=== PATIENT | male | born 1945 | race Caucasian/White ===

== ENCOUNTER 2023-10-25 14:38 | Inpatient (IN) ==
[2023-10-25 15:39] LABS: ABS Basophils 0.1 10^3/uL (0.0-0.1); ABS Lymphocytes 0.5 10^3/uL (1.0-4.8); ABS Monocytes 0.6 10^3/uL (0.0-1.1); ABS Neutrophils 16.9 10^3/uL (1.5-7.6); ABS Nucleated RBC 0.01 10^3/ul; Hematocrit 37.6 % (38-53); Hemoglobin 12.7 g/dL (13.2-16.3); Mean Corpuscular Hemoglobin 30.5 pg (27-33); Mean Corpuscular Hgb Conc 33.9 g/dL (31-36); Mean Corpuscular Volume 90.1 fL (80-97); Mean Platelet Volume 7.5 fL (7.5-11.2); Platelet Count 179 10^3/uL (150-450); Red Blood Count 4.17 10^6/uL (4.06-5.63); Red Cell Distribution Width 15.3 % (12-17); White Blood Count 18.1 10^3/uL (3.6-10.2)
[2023-10-25 16:02] LABS: High Sens Troponin Baseline 19 pg/mL (<20)
[2023-10-25 16:10] LABS: ALT 9 U/L (7-52); Albumin 2.8 g/dL (3.2-5.2); Alkaline Phosphatase 56 U/L (35-149); Blood Urea Nitrogen 32 mg/dL (6-24); CO2 Carbon Dioxide 21 mmol/L (22-32); Calcium 7.6 mg/dL (8.6-10.3); Chloride 99 mmol/L (101-111); Globulin 2.9 g/dL (2-4); Glucose 101 mg/dL (70-100); Sodium 133 mmol/L (135-145); Total Bilirubin 0.6 mg/dL (0.2-1.0); Total Protein 5.7 g/dL (6.4-8.9); eGFR CKD-EPI 62.7 (>60)
[2023-10-25] MEDS: LACTATED RINGERS IV ONE (16:15)
[2023-10-25 16:25] LABS: Anion Gap 13 mmol/L (2-16)
[2023-10-25 17:05] LABS: High Sensitivity Troponin 1 Hr 16 pg/mL (<20)
[2023-10-25] MEDS: Orphenadrine Citrate INJ 30 mg/ml 2 ml VIAL (60 mg) IV ONE (17:09)
[2023-10-25 18:32] LABS: Urine Appearance Extra Turbid; Urine Bacteria 3+ /HPF (Absent); Urine Bilirubin Negative (Negative); Urine Blood 2+ (Negative); Urine Glucose Negative (Negative); Urine Ketones Negative (Negative); Urine Nitrite Negative (Negative); Urine Protein 2+ (>=100 mg/dL) (Negative); Urine Red Blood Cell 3+(>10/hpf) /HPF (0-Trace); Urine Specific Gravity 1.016 (1.002-1.030); Urine Urobilinogen Negative (Negative); Urine White Blood Cell 3+(>20/hpf) /HPF (0-Trace)
[2023-10-25 18:38] LABS: Urine Color Dark-Yellow
[2023-10-25] MEDS: Iodixanol (CONTRAST) 320 MG/ML 100 ML SDV IV ONE (18:43)
[2023-10-25] MEDS: cefTRIAXone 1 gm/50 mL D5W 1 GM/50 ML BAG IV ONE (20:00)
[2023-10-25] MEDS ORDERED: Polyethylene Glycol 3350 17 GM PACKET PO PRN (20:39)
[2023-10-25] MEDS: Remdesivir 100 mg Vial 200 MG in NS 0.9% 250 ml 210 ML IV ONE (21:55)
[2023-10-25] MEDS: Enoxaparin 40 MG/0.4 ML SYR SUBCUT SCH (21:55)
[2023-10-25] MEDS: Azithromycin 500 mg/250 ml NS 500 MG/250 ML BAG IVPB SCH (21:56)
[2023-10-25] MEDS ORDERED: Dextrose 50% Syringe 50 ml 25 GM/50 ML SYRINGE IV PUSH PRN (22:07)
[2023-10-25 22:32] LABS: INR 1.18 (0.85-1.14)
[2023-10-25 22:47] LABS: Albumin 2.6 g/dL (3.2-5.2); Calcium 7.6 mg/dL (8.6-10.3); Creatinine, Serum 1.04 mg/dL (0.67-1.17); Globulin 2.7 g/dL (2-4); Potassium 4.1 mmol/L (3.5-5.0); Total Bilirubin 0.4 mg/dL (0.2-1.0); Total Protein 5.3 g/dL (6.4-8.9); eGFR CKD-EPI 74.4 (>60)
[2023-10-25] MEDS: DOXYcycline 100 MG in NS 0.9% 250 ml 250 ML IVPB SCH (23:20)
[2023-10-26 06:44] LABS: ABS Lymphocytes 0.4 10^3/uL (1.0-4.8); ABS Monocytes 0.3 10^3/uL (0.0-1.1); ABS Neutrophils 12.5 10^3/uL (1.5-7.6); Hematocrit 37.5 % (38-53); Hemoglobin 12.8 g/dL (13.2-16.3); Lymphocyte % 3.1 %; Mean Corpuscular Hgb Conc 34.2 g/dL (31-36); Mean Corpuscular Volume 90.8 fL (80-97); Platelet Count 139 10^3/uL (150-450); Red Blood Count 4.13 10^6/uL (4.06-5.63); Red Cell Distribution Width 15.1 % (12-17); White Blood Count 13.2 10^3/uL (3.6-10.2)
[2023-10-26 06:48] LABS: INR 1.07 (0.85-1.14)
[2023-10-26 07:34] LABS: Albumin 2.6 g/dL (3.2-5.2); Albumin/Globulin Ratio 0.9 (1-3); Calcium 7.4 mg/dL (8.6-10.3); Creatinine, Serum 0.96 mg/dL (0.67-1.17); Globulin 2.9 g/dL (2-4); Potassium 4.4 mmol/L (3.5-5.0); Total Bilirubin 0.3 mg/dL (0.2-1.0); Total Protein 5.5 g/dL (6.4-8.9); eGFR CKD-EPI 81.9 (>60)
[2023-10-26] MEDS ORDERED: Polyethylene Glycol 3350 BTL 238 GM BTL PO PRN (14:50)
[2023-10-26] MEDS: cefTRIAXone 1 gm/50 mL D5W 1 GM/50 ML BAG IV SCH (20:05)
[2023-10-26] MEDS: oxyCODONE SR 10 mg TAB PO SCH (22:37)
[2023-10-26] MEDS: TROSPIUM 20 MG PO SCH (22:42)
[2023-10-27] MEDS: Remdesivir 100 mg Vial 100 MG in NS 0.9% 250 ml 230 ML IV SCH (00:30)
[2023-10-27] MEDS: Al Hydrox/Mg Hydrox/Simet LIQ 30 ML UDC PO PRN (01:38)
[2023-10-27] MEDS: DOXYcycline 100 MG in NS 0.9% 250 ml 250 ML IVPB SCH (01:38)
[2023-10-27 07:11] LABS: ALT 9 U/L (7-52); Albumin 2.6 g/dL (3.2-5.2); Albumin/Globulin Ratio 0.9 (1-3); Alkaline Phosphatase 52 U/L (35-149); Anion Gap 8 mmol/L (2-16); Blood Urea Nitrogen 39 mg/dL (6-24); CO2 Carbon Dioxide 26 mmol/L (22-32); Calcium 8.1 mg/dL (8.6-10.3); Chloride 99 mmol/L (101-111); Creatinine, Serum 0.93 mg/dL (0.67-1.17); Globulin 2.9 g/dL (2-4); Glucose 125 mg/dL (70-100); Sodium 133 mmol/L (135-145); Total Bilirubin 0.2 mg/dL (0.2-1.0); Total Protein 5.5 g/dL (6.4-8.9); eGFR CKD-EPI 85.1 (>60)
[2023-10-27 10:27] LABS: Potassium Redraw 4.3 mmol/L (3.5-5.0)
[2023-10-27] MEDS: Aspirin EC 81 mg TAB.EC (enteric coated) PO SCH (11:40)
[2023-10-27] MEDS: Lidocaine PATCH 5% PATCH TRANSDERM SCH (11:42)
[2023-10-27] MEDS: Nicotine PATCH 14 MG/24 HR PATCH TRANSDERM SCH (11:47)
[2023-10-27] MEDS: Cefepime 2 GM in Dextrose 2 GM/50 ML BAG IV SCH (15:41)
[2023-10-27 17:00] LABS: INR 1.09 (0.85-1.14)
[2023-10-27] MEDS ORDERED: cefTRIAXone 1 gm/50 mL D5W 1 GM/50 ML BAG IV SCH (20:00)
[2023-10-28 10:31] VITALS: BP 145/85
[2023-10-28] MEDS ORDERED: TROSPIUM 20 MG PO SCH (21:00)
== END 2023-10-28 14:30 | disposition home or self-care (01) | DRG 871 ==
LOC: ED 14:38 → EDHOLD 14:38 → OBSVTOIN 20:39 → MEDTELE 10-26 18:42 → EDHOLD 10-26 21:08 → MED 10-26 21:54
PROVIDERS: ADMIT Internal Medicine; ATTEND Hospitalist